=== PATIENT | female | born 1945 | race American Indian/Alaskan Native ===

== ENCOUNTER 2019-02-10 03:51 | Emergency (ER) | payer MEDICARE ==
[2019-02-10 04:39] VITALS: BP 142/72
[2019-02-10 04:56] LABS: Basophils # (Auto) 0.1 K/mm3 (0.0-0.1); Basophils % (Auto) 1.4 % (0.0-1.8); Eosinophils # (Auto) 0.2 K/mm3 (0.0-0.4); Eosinophils % (Auto) 2.7 % (0.0-4.3); Hematocrit 41.7 % (30.3-42.9); Lymphocytes # (Auto) 1.4 K/mm3 (1.2-5.4); Mean Corpuscular HGB Conc 34 % (30-34); Mean Corpuscular Volume 90 fl (79-97); Monocytes # (Auto) 0.7 K/mm3 (0.0-0.8); Monocytes % (Auto) 9.7 % (0.0-7.3); Platelet Count 359 K/mm3 (140-440); Red Blood Count 4.65 M/mm3 (3.65-5.03); Red Cell Distribution Width 15.2 % (13.2-15.2)
[2019-02-10 04:59] LABS: Bilirubin,Urine NEG (Negative); Blood,Urine NEG (Negative); Color,Urine Straw (Yellow); Protein,Urine <15 mg/dL mg/dL (Negative); Urobilinogen,Urine < 2.0 mg/dL (<2.0)
[2019-02-10 05:08] LABS: Amphetamine Screen,Urine PRESUMPTIVE NEGATIVE; Cannabinoid Screen,Urine PRESUMPTIVE NEGATIVE; Cocaine Screen,Urine PRESUMPTIVE NEGATIVE; Methadone Screen,Urine PRESUMPTIVE NEGATIVE; Opiate Screen,Urine PRESUMPTIVE NEGATIVE
[2019-02-10 05:18] LABS: BUN/Creatinine Ratio 21; Blood Urea Nitrogen 15 mg/dL (7-17); Calcium 9.5 mg/dL (8.4-10.2); Hemolysis Index 17
[2019-02-10 05:32] LABS: Benzodiazepines Screen,Urine PRESUMPTIVE POSITIVE
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
== END 2019-02-10 09:11 ==
LOC: ED 03:51
DX: F31.9 Bipolar disorder, unspecified (principal); Z79.899 Other long term (current) drug therapy
CPT/HCPCS: 36415; 80048; 80307; 80320; 81001; 85025; G0480

== ENCOUNTER 2019-02-10 09:34 | Inpatient (IN) | payer MEDICARE ==
[2019-02-10] MEDS ORDERED: HALOPERIDOL LACTATE 5 MG/1 ML INJ IM PRN (09:57)
[2019-02-10] MEDS ORDERED: LORazepam 2 MG/ML VIAL IM PRN (09:57)
[2019-02-10 12:30] LABS: Basophils # (Auto) 0.1 K/mm3 (0.0-0.1); Basophils % (Auto) 0.9 % (0.0-1.8); Eosinophils # (Auto) 0.1 K/mm3 (0.0-0.4); Eosinophils % (Auto) 2.3 % (0.0-4.3); Hemoglobin 13.5 gm/dl (10.1-14.3); Lymphocytes # (Auto) 0.7 K/mm3 (1.2-5.4); Lymphocytes % (Auto) 11.6 % (13.4-35.0); Mean Corpuscular HGB Conc 34 % (30-34); Mean Corpuscular Volume 90 fl (79-97); Monocytes # (Auto) 0.6 K/mm3 (0.0-0.8); Monocytes % (Auto) 11.1 % (0.0-7.3); Platelet Count 333 K/mm3 (140-440); Red Blood Count 4.44 M/mm3 (3.65-5.03); Red Cell Distribution Width 15.6 % (13.2-15.2)
[2019-02-10 12:49] LABS: Alanine Aminotransferase 7 units/L (7-56); Albumin 4.5 g/dL (3.9-5); BUN/Creatinine Ratio 21; Blood Urea Nitrogen 15 mg/dL (7-17); Calcium 9.7 mg/dL (8.4-10.2); Chol/HDL Ratio 2.74 %; HDL Cholesterol 89 mg/dL (40-59); Hemolysis Index 26; LDL Cholesterol,Direct 158 mg/dL (50-130)
[2019-02-10] MEDS ORDERED: MECLIZINE 25 MG PO PRN (14:31)
[2019-02-10] MEDS ORDERED: MECLIZINE 25 MG TAB PO PRN (14:44)
[2019-02-10] MEDS: SERTRALINE 50 MG TAB PO SCH (15:36)
[2019-02-10] MEDS: clonazePAM 0.5 MG TAB PO SCH ×2 (15:36→21:57)
[2019-02-10] MEDS: NICOTINE 21 MG/24 HR PATCH TD SCH (18:42)
[2019-02-10] MEDS: traZODone 100 MG TAB PO SCH (21:57)
[2019-02-11] MEDS: LEVOTHYROXINE 50 MCG TAB PO SCH (07:39)
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
[2019-02-11] MEDS: clonazePAM 0.5 MG TAB PO SCH ×2 (09:29→21:09)
[2019-02-11] MEDS: SERTRALINE 50 MG TAB PO SCH (09:29)
[2019-02-11] MEDS: PANTOPRAZOLE 20 MG TAB PO SCH (09:29)
[2019-02-11] MEDS: NICOTINE 21 MG/24 HR PATCH TD SCH (09:29)
[2019-02-11] MEDS ORDERED: NON-FORMULARY EACH (Omeprazole [Omeprazole] 20 MG) PO SCH (10:00)
--- NOTE | 2019-02-11 12:58 | Consultation ---
History of Present Illness - Reason for Consult Consult date: 02/11/19 medical management Requesting physician: MONTANA GARCIA - History of Present Illness 73-year-old female patient with significant history of bipolar disorder and major depressive disorder hypothyroidism gastroesophageal reflux disease and ongoing tobacco use was admitted to geriatric psych unit for psych management Hospitalist services for consultation for medical consult and medical management Patient gives history of GERD and hypothyroidism, on Protonix and Synthroid at Patient also has history of ongoing tobacco use Patient does not know why she is in the hospital, reports that her and daughter got a court order then brought her here, Patient denies chest pain shortness of breath no nausea vomiting or abdominal pain Past History Past Medical History: GERD, hypothyroidism Past Surgical History: No surgical history Social history: , lives with family (has some college ed, no legal problems, has a gun), smoking, other (occasional drug use). denies: alcohol abuse Family history: no significant family history Medications and Allergies Allergies Allergy/AdvReac Type Severity Reaction Status Date / Time No Known Allergies Allergy Unverified 02/10/19 04:23 Home Medications Medication Instructions Recorded Confirmed Last Taken Type Levothyroxine [Synthroid] 50 mcg PO QDAY 02/10/19 02/10/19 02/09/19 08:00 History Meclizine 25 mg PO PRN PRN 02/10/19 02/10/19 Unknown History Omeprazole 20 mg PO QDAY 02/10/19 02/10/19 02/09/19 10:00 History Sertraline [Zoloft] 50 mg PO QDAY 02/10/19 02/10/19 02/09/19 10:00 History clonazePAM [KlonoPIN] 0.5 mg PO BID 02/10/19 02/10/19 02/09/19 17:00 History traZODone [Desyrel] 100 mg PO QHS 02/10/19 02/10/19 02/09/19 20:00 History Active Meds: Active Medications Clonazepam (Klonopin) 0.5 mg PO BID [facility] Last Admin: 02/11/19 09:29 Dose: 0.5 mg Documented by: Haloperidol Lactate (Haldol) 5 mg IM Q6H PRN PRN Reason: Agitation Levothyroxine Sodium (Synthroid) 50 mcg PO 0600 [facility] Last Admin: 02/11/19 07:39 Dose: 50 mcg Documented by: Lorazepam (Ativan) 1 mg IM Q6H PRN PRN Reason: Agitation Meclizine HCl (Antivert) 25 mg PO Q8H PRN PRN Reason: Vertigo Nicotine (Habitrol) 21 mg TD QDAY [facility] Last Admin: 02/11/19 09:29 Dose: 21 mg Documented by: Pantoprazole Sodium (Protonix) 20 mg PO QDAY [facility] Last Admin: 02/11/19 09:29 Dose: 20 mg Documented by: Sertraline HCl (Zoloft) 50 mg PO QDAY [facility] Last Admin: 02/11/19 09:29 Dose: 50 mg Documented by: Trazodone HCl (Desyrel) 100 mg PO QHS [facility] Last Admin: 02/10/19 21:57 Dose: 100 mg Documented by: Review of Systems Constitutional: weakness, no weight loss, no weight gain Ears, nose, mouth and throat: no nasal congestion, no nasal discharge Cardiovascular: no chest pain, no palpitations Respiratory: no cough, no shortness of breath Gastrointestinal: no abdominal pain, no nausea, no vomiting Genitourinary Female: no pelvic pain, no dysuria Musculoskeletal: no myalgias, no arthritis Integumentary: no rash, no lesions Neurological: no weakness, no seizures, no syncope Psychiatric: depression, no anxiety Endocrine: no cold intolerance, no heat intolerance Hematologic/Lymphatic: no easy bruising, no easy bleeding Allergic/Immunologic: no urticaria, no allergic rhinitis Exam - Constitutional Vitals: Temp Pulse Resp BP Pulse Ox 98.1 F 91 H 16 130/52 95 02/11/19 09:25 02/11/19 09:25 02/11/19 09:25 02/11/19 09:25 02/11/19 09:25 General appearance: Present: no acute distress, well-nourished, other (mild regurgitation) - EENT Eyes: Present: PERRL, EOM intact - Neck Neck: Present: supple, normal ROM - Respiratory Respiratory effort: normal Respiratory: bilateral: diminished, negative: rales, rhonchi, wheezing - Cardiovascular Rhythm: regular Heart Sounds: Present: S1 & S2 - Extremities Extremities: no ischemia, No edema - Abdominal General gastrointestinal: Present: soft, non-tender, non-distended, normal bowel sounds - Integumentary Integumentary: Present: clear, warm - Musculoskeletal Musculoskeletal: strength equal bilaterally - Psychiatric Psychiatric: appropriate mood/affect, other (sometimes anxious) - Neurologic Neurologic: moves all extremities Results - Labs CBC & Chem 7: 02/10/19 12:10 02/10/19 12:10 Assessment and Plan --Bipolar disorder; management per psych --Gastroesophageal reflux disease; Protonix --Hypothyroidism; resume her Synthroid --Ongoing tobacco use; smoking cessation counseling Nicotine patch as needed --Dyslipidemia; Low-cholesterol diet Repeat lipid panel in 3-4 months at PMDs office --DVT prophylaxis; SCDs while resting Will monitor closely and adjust the management as needed Thank you for this consultation we will follow the patient along with you as needed
[2019-02-11 18:32] LABS: Bacteria,Urine 1+ /HPF (Negative); Bilirubin,Urine NEG (Negative); Blood,Urine NEG (Negative); Color,Urine Yellow (Yellow); Protein,Urine <15 mg/dL mg/dL (Negative); Urobilinogen,Urine < 2.0 mg/dL (<2.0)
[2019-02-11] MEDS: traZODone 100 MG TAB PO SCH (21:09)
[2019-02-12] MEDS: PANTOPRAZOLE 20 MG TAB PO SCH (10:03)
[2019-02-12] MEDS: NICOTINE 21 MG/24 HR PATCH TD SCH (10:03)
[2019-02-12] MEDS: clonazePAM 0.5 MG TAB PO SCH ×2 (10:03→21:10)
[2019-02-12] MEDS: SERTRALINE 50 MG TAB PO SCH (10:04)
--- NOTE | 2019-02-12 11:43 | Progress Note ---
Subjective Date of service: 02/12/19 Principal diagnosis: Bipolardisorder, unspecified Subjective Comment: Patient report that mood is depressed but denies being suicidal. She is compliant with medications and denies side effect. She denies SI/HI/AVH. She is apparently homeless at this time. Nursing Report: Patient is alert and oriented x's 4, calm, and cooperative. currently medication compliant. denies si/hi/avh.patient ambulates independently. she has been interactive with peers and staff. independent with adl's. patient had a shower this morning. continent. voices needs. will continue to monitor for safety. MSE: Orientation: time, place, person Affect: normal Mood: calm Thought Process: Intact Perceptions: none Speech: normal rate and pattern Concentration: focused Motor activity: normal Level of consciousness: alert Memory: Intact Interaction: cooperative Mini mental status exam(if necessary): 24-30 Objective - Criteria for Continued Treatment Criteria for Continued Treatment: Improving Level of Functioning, Stablizing Level of Functioning, Improving Emotional/Socia - Mental Status Mental Status: Alert - Objective Observation Participation Level: Full Assessment and Plan - Patient Problems (1) Bipolar disorder, unspecified Current Visit: Yes Status: Acute Plan to address problem: Patient will be admitted for inpatient psychiatric evaluation, medication adjustment and close monitoring The patient's behavior, mood, sleep and appetite will be closely monitored. Patient will be enrolled in individual and group therapeutic sessions and encouraged to attend. Patient will be provided with a safe and structured environment. Patient's physical health needs will be addressed by the Hospitalist. Social Assessment will be completed and the Nursery Nurse will work with patient and family to ensure a suitable and safe disposition Medication adjustment will be made as clinically indicated The patient agreed on the treatment plan, understood the risk, benefit, alternative treatment, potential consequence of no treatment, and gave informed consent. Medications and Allergies Allergies Allergy/AdvReac Type Severity Reaction Status Date / Time No Known Allergies Allergy Unverified 02/10/19 04:23 Home Medications Medication Instructions Recorded Confirmed Last Taken Type Levothyroxine [Synthroid] 50 mcg PO QDAY 02/10/19 02/10/19 02/09/19 08:00 History Meclizine 25 mg PO PRN PRN 02/10/19 02/10/19 Unknown History Omeprazole 20 mg PO QDAY 02/10/19 02/10/19 02/09/19 10:00 History Sertraline [Zoloft] 50 mg PO QDAY 02/10/19 02/10/19 02/09/19 10:00 History clonazePAM [KlonoPIN] 0.5 mg PO BID 02/10/19 02/10/19 02/09/19 17:00 History traZODone [Desyrel] 100 mg PO QHS 02/10/19 02/10/19 02/09/19 20:00 History Active Meds: Active Medications Clonazepam (Klonopin) 0.5 mg PO BID [facility] Last Admin: 02/12/19 10:03 Dose: 0.5 mg Documented by: Haloperidol Lactate (Haldol) 5 mg IM Q6H PRN PRN Reason: Agitation Levothyroxine Sodium (Synthroid) 50 mcg PO 0600 [facility] Last Admin: 02/11/19 07:39 Dose: 50 mcg Documented by: Lorazepam (Ativan) 1 mg IM Q6H PRN PRN Reason: Agitation Meclizine HCl (Antivert) 25 mg PO Q8H PRN PRN Reason: Vertigo Nicotine (Habitrol) 21 mg TD QDAY [facility] Last Admin: 02/12/19 10:03 Dose: 21 mg Documented by: Pantoprazole Sodium (Protonix) 20 mg PO QDAY [facility] Last Admin: 02/12/19 10:03 Dose: 20 mg Documented by: Sertraline HCl (Zoloft) 50 mg PO QDAY [facility] Last Admin: 02/12/19 10:04 Dose: 50 mg Documented by: Trazodone HCl (Desyrel) 100 mg PO QHS [facility] Last Admin: 02/11/19 21:09 Dose: 100 mg Documented by: Results - Results Labs/Vitals: Laboratory Last Values WBC 5.8 K/mm3 (4.5-11.0) 02/10/19 12:10 RBC 4.44 M/mm3 (3.65-5.03) 02/10/19 12:10 Hgb 13.5 gm/dl (10.1-14.3) 02/10/19 12:10 Hct 40.0 % (30.3-42.9) 02/10/19 12:10 MCV 90 fl (79-97) 02/10/19 12:10 MCH 30 pg (28-32) 02/10/19 12:10 MCHC 34 % (30-34) 02/10/19 12:10 RDW 15.6 % (13.2-15.2) H 02/10/19 12:10 Plt Count 333 K/mm3 (140-440) 02/10/19 12:10 Lymph % (Auto) 11.6 % (13.4-35.0) L 02/10/19 12:10 [place] % (Auto) 11.1 % (0.0-7.3) H 02/10/19 12:10 Eos % (Auto) 2.3 % (0.0-4.3) 02/10/19 12:10 Baso % (Auto) 0.9 % (0.0-1.8) 02/10/19 12:10 Lymph # 0.7 K/mm3 (1.2-5.4) L 02/10/19 12:10 [place] # 0.6 K/mm3 (0.0-0.8) 02/10/19 12:10 Eos # 0.1 K/mm3 (0.0-0.4) 02/10/19 12:10 Baso # 0.1 K/mm3 (0.0-0.1) 02/10/19 12:10 Seg Neutrophils % 74.1 % (40.0-70.0) H 02/10/19 12:10 Seg Neutrophils # 4.3 K/mm3 (1.8-7.7) 02/10/19 12:10 Sodium 139 mmol/L (137-145) 02/10/19 12:10 Potassium 5.1 mmol/L (3.6-5.0) H D 02/10/19 12:10 Chloride 99.1 mmol/L (98-107) 02/10/19 12:10 Carbon Dioxide 28 mmol/L (22-30) 02/10/19 12:10 Anion Gap 17 mmol/L 02/10/19 12:10 BUN 15 mg/dL (7-17) 02/10/19 12:10 Creatinine 0.7 mg/dL (0.7-1.2) 02/10/19 12:10 Estimated GFR > 60 ml/min 02/10/19 12:10 BUN/Creatinine Ratio 21 % 02/10/19 12:10 Glucose 100 mg/dL (65-100) 02/10/19 12:10 POC Glucose 91 (70-105) 02/10/19 12:34 Hemoglobin A1c 6.5 % (4-6) H 02/10/19 12:10 Calcium 9.7 mg/dL (8.4-10.2) 02/10/19 12:10 Total Bilirubin 0.20 mg/dL (0.1-1.2) 02/10/19 12:10 AST 16 units/L (5-40) 02/10/19 12:10 ALT 7 units/L (7-56) 02/10/19 12:10 Alkaline Phosphatase 68 units/L (35-129) 02/10/19 12:10 Total Protein 7.0 g/dL (6.3-8.2) 02/10/19 12:10 Albumin 4.5 g/dL (3.9-5) 02/10/19 12:10 Albumin/Globulin Ratio 1.8 % 02/10/19 12:10 Triglycerides 75 mg/dL (2-149) 02/10/19 12:10 Cholesterol 244 mg/dL (50-199) H 02/10/19 12:10 LDL Cholesterol Direct 158 mg/dL (50-130) H 02/10/19 12:10 HDL Cholesterol 89 mg/dL (40-59) H 02/10/19 12:10 Cholesterol/HDL Ratio 2.74 % 02/10/19 12:10 Urine Color Yellow (Yellow) 02/10/19 Unknown Urine Turbidity Clear (Clear) 02/10/19 Unknown Urine pH 6.0 (5.0-7.0) 02/10/19 Unknown Ur Specific [place] 1.016 (1.003-1.030) 02/10/19 Unknown Urine Protein <15 mg/dl mg/dL (Negative) 02/10/19 Unknown Urine Glucose (UA) Neg mg/dL (Negative) 02/10/19 Unknown Urine Ketones Neg mg/dL (Negative) 02/10/19 Unknown Urine Blood Neg (Negative) 02/10/19 Unknown Urine Nitrite Neg (Negative) 02/10/19 Unknown Urine Bilirubin Neg (Negative) 02/10/19 Unknown Urine Urobilinogen < 2.0 mg/dL (<2.0) 02/10/19 Unknown Ur Leukocyte Esterase Mod (Negative) 02/10/19 Unknown Urine WBC (Auto) 17.0 /HPF (0.0-6.0) H 02/10/19 Unknown Urine RBC (Auto) 2.0 /HPF (0.0-6.0) 02/10/19 Unknown U Epithel Cells (Auto) < 1.0 /HPF (0-13.0) 02/10/19 Unknown Urine Bacteria (Auto) 1+ /HPF (Negative) 02/10/19 Unknown Last Vital Signs Temp 97.9 F 02/12/19 09:04 Pulse 86 02/12/19 09:04 Resp 16 02/12/19 09:04 BP 104/61 02/12/19 09:04 Pulse Ox 95 02/12/19 09:04
[2019-02-12] MEDS: traZODone 100 MG TAB PO SCH (21:09)
[2019-02-13] MEDS: LEVOTHYROXINE 50 MCG TAB PO SCH (06:26)
--- NOTE | 2019-02-13 08:08 | Progress Note ---
Subjective Date of service: 02/13/19 Principal diagnosis: Bipolar disorder, unspecified Subjective Comment: Patient report that mood is more depressed this morning but denies being suicidal. She is compliant with medications and denies side effect. She denies SI/HI/AVH. She is apparently homeless at this time. Nursing Report: Patient is alert and oriented x's 4, calm, and cooperative. currently medication compliant. denies si/hi/avh.patient ambulates independently. she has been interactive with peers and staff. independent with adl's. patient had a shower this morning. continent. voices needs. will continue to monitor for safety. MSE: Orientation: time, place, person Affect: normal Mood: calm Thought Process: Intact Perceptions: none Speech: normal rate and pattern Concentration: focused Motor activity: normal Level of consciousness: alert Memory: Intact Interaction: cooperative Mini mental status exam(if necessary): 24-30 Objective - Criteria for Continued Treatment Criteria for Continued Treatment: Improving Level of Functioning, Stablizing Level of Functioning, Improving Emotional/Socia - Mental Status Mental Status: Alert - Objective Observation Participation Level: Full Assessment and Plan - Patient Problems (1) Bipolar disorder, unspecified Current Visit: Yes Status: Acute Plan to address problem: Patient will be admitted for inpatient psychiatric evaluation, medication adjustment and close monitoring The patient's behavior, mood, sleep and appetite will be closely monitored. Patient will be enrolled in individual and group therapeutic sessions and encouraged to attend. Patient will be provided with a safe and structured environment. Patient's physical health needs will be addressed by the Hospitalist. Social Assessment will be completed and the Cell Manager will work with patient and family to ensure a suitable and safe disposition Medication adjustment will be made as clinically indicated The patient agreed on the treatment plan, understood the risk, benefit, alternative treatment, potential consequence of no treatment, and gave informed consent. Medications and Allergies Allergies Allergy/AdvReac Type Severity Reaction Status Date / Time No Known Allergies Allergy Unverified 02/10/19 04:23 Home Medications Medication Instructions Recorded Confirmed Last Taken Type Levothyroxine [Synthroid] 50 mcg PO QDAY 02/10/19 02/10/19 02/09/19 08:00 History Meclizine 25 mg PO PRN PRN 02/10/19 02/10/19 Unknown History Omeprazole 20 mg PO QDAY 02/10/19 02/10/19 02/09/19 10:00 History Sertraline [Zoloft] 50 mg PO QDAY 02/10/19 02/10/19 02/09/19 10:00 History clonazePAM [KlonoPIN] 0.5 mg PO BID 02/10/19 02/10/19 02/09/19 17:00 History traZODone [Desyrel] 100 mg PO QHS 02/10/19 02/10/19 02/09/19 20:00 History Active Meds: Active Medications Clonazepam (Klonopin) 0.5 mg PO BID [facility] Last Admin: 02/12/19 21:10 Dose: 0.5 mg Documented by: Haloperidol Lactate (Haldol) 5 mg IM Q6H PRN PRN Reason: Agitation Levothyroxine Sodium (Synthroid) 50 mcg PO 0600 [facility] Last Admin: 02/13/19 06:26 Dose: 50 mcg Documented by: Lorazepam (Ativan) 1 mg IM Q6H PRN PRN Reason: Agitation Meclizine HCl (Antivert) 25 mg PO Q8H PRN PRN Reason: Vertigo Nicotine (Habitrol) 21 mg TD QDAY [facility] Last Admin: 02/12/19 10:03 Dose: 21 mg Documented by: Pantoprazole Sodium (Protonix) 20 mg PO QDAY [facility] Last Admin: 02/12/19 10:03 Dose: 20 mg Documented by: Sertraline HCl (Zoloft) 50 mg PO QDAY [facility] Last Admin: 02/12/19 10:04 Dose: 50 mg Documented by: Trazodone HCl (Desyrel) 100 mg PO QHS [facility] Last Admin: 02/12/19 21:09 Dose: 100 mg Documented by: Results - Results Labs/Vitals: Laboratory Last Values WBC 5.8 K/mm3 (4.5-11.0) 02/10/19 12:10 RBC 4.44 M/mm3 (3.65-5.03) 02/10/19 12:10 Hgb 13.5 gm/dl (10.1-14.3) 02/10/19 12:10 Hct 40.0 % (30.3-42.9) 02/10/19 12:10 MCV 90 fl (79-97) 02/10/19 12:10 MCH 30 pg (28-32) 02/10/19 12:10 MCHC 34 % (30-34) 02/10/19 12:10 RDW 15.6 % (13.2-15.2) H 02/10/19 12:10 Plt Count 333 K/mm3 (140-440) 02/10/19 12:10 Lymph % (Auto) 11.6 % (13.4-35.0) L 02/10/19 12:10 [place] % (Auto) 11.1 % (0.0-7.3) H 02/10/19 12:10 Eos % (Auto) 2.3 % (0.0-4.3) 02/10/19 12:10 Baso % (Auto) 0.9 % (0.0-1.8) 02/10/19 12:10 Lymph # 0.7 K/mm3 (1.2-5.4) L 02/10/19 12:10 [place] # 0.6 K/mm3 (0.0-0.8) 02/10/19 12:10 Eos # 0.1 K/mm3 (0.0-0.4) 02/10/19 12:10 Baso # 0.1 K/mm3 (0.0-0.1) 02/10/19 12:10 Seg Neutrophils % 74.1 % (40.0-70.0) H 02/10/19 12:10 Seg Neutrophils # 4.3 K/mm3 (1.8-7.7) 02/10/19 12:10 Sodium 139 mmol/L (137-145) 02/10/19 12:10 Potassium 5.1 mmol/L (3.6-5.0) H D 02/10/19 12:10 Chloride 99.1 mmol/L (98-107) 02/10/19 12:10 Carbon Dioxide 28 mmol/L (22-30) 02/10/19 12:10 Anion Gap 17 mmol/L 02/10/19 12:10 BUN 15 mg/dL (7-17) 02/10/19 12:10 Creatinine 0.7 mg/dL (0.7-1.2) 02/10/19 12:10 Estimated GFR > 60 ml/min 02/10/19 12:10 BUN/Creatinine Ratio 21 % 02/10/19 12:10 Glucose 100 mg/dL (65-100) 02/10/19 12:10 POC Glucose 91 (70-105) 02/10/19 12:34 Hemoglobin A1c 6.5 % (4-6) H 02/10/19 12:10 Calcium 9.7 mg/dL (8.4-10.2) 02/10/19 12:10 Total Bilirubin 0.20 mg/dL (0.1-1.2) 02/10/19 12:10 AST 16 units/L (5-40) 02/10/19 12:10 ALT 7 units/L (7-56) 02/10/19 12:10 Alkaline Phosphatase 68 units/L (35-129) 02/10/19 12:10 Total Protein 7.0 g/dL (6.3-8.2) 02/10/19 12:10 Albumin 4.5 g/dL (3.9-5) 02/10/19 12:10 Albumin/Globulin Ratio 1.8 % 02/10/19 12:10 Triglycerides 75 mg/dL (2-149) 02/10/19 12:10 Cholesterol 244 mg/dL (50-199) H 02/10/19 12:10 LDL Cholesterol Direct 158 mg/dL (50-130) H 02/10/19 12:10 HDL Cholesterol 89 mg/dL (40-59) H 02/10/19 12:10 Cholesterol/HDL Ratio 2.74 % 02/10/19 12:10 Urine Color Yellow (Yellow) 02/10/19 Unknown Urine Turbidity Clear (Clear) 02/10/19 Unknown Urine pH 6.0 (5.0-7.0) 02/10/19 Unknown Ur Specific [place] 1.016 (1.003-1.030) 02/10/19 Unknown Urine Protein <15 mg/dl mg/dL (Negative) 02/10/19 Unknown Urine Glucose (UA) Neg mg/dL (Negative) 02/10/19 Unknown Urine Ketones Neg mg/dL (Negative) 02/10/19 Unknown Urine Blood Neg (Negative) 02/10/19 Unknown Urine Nitrite Neg (Negative) 02/10/19 Unknown Urine Bilirubin Neg (Negative) 02/10/19 Unknown Urine Urobilinogen < 2.0 mg/dL (<2.0) 02/10/19 Unknown Ur Leukocyte Esterase Mod (Negative) 02/10/19 Unknown Urine WBC (Auto) 17.0 /HPF (0.0-6.0) H 02/10/19 Unknown Urine RBC (Auto) 2.0 /HPF (0.0-6.0) 02/10/19 Unknown U Epithel Cells (Auto) < 1.0 /HPF (0-13.0) 02/10/19 Unknown Urine Bacteria (Auto) 1+ /HPF (Negative) 02/10/19 Unknown Last Vital Signs Temp 98.4 F 02/12/19 20:22 Pulse 83 02/12/19 20:22 Resp 18 02/12/19 20:22 BP 142/62 02/12/19 20:22 Pulse Ox 96 02/12/19 20:22
[2019-02-13] MEDS: clonazePAM 0.5 MG TAB PO SCH ×2 (10:05→21:09)
[2019-02-13] MEDS: NICOTINE 21 MG/24 HR PATCH TD SCH (10:05)
[2019-02-13] MEDS: PANTOPRAZOLE 20 MG TAB PO SCH (10:05)
[2019-02-13] MEDS: SERTRALINE 50 MG TAB PO SCH (10:05)
[2019-02-13] MEDS ORDERED: LOPERAMIDE 2 MG CAP PO PRN (13:13)
[2019-02-13] MEDS: traZODone 100 MG TAB PO SCH (21:09)
[2019-02-14] MEDS: LEVOTHYROXINE 50 MCG TAB PO SCH ×2 (07:12→07:15)
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
[2019-02-14] MEDS: clonazePAM 0.5 MG TAB PO SCH ×2 (09:52→21:07)
[2019-02-14] MEDS: NICOTINE 21 MG/24 HR PATCH TD SCH (09:52)
[2019-02-14] MEDS: SERTRALINE 50 MG TAB PO SCH (09:52)
[2019-02-14] MEDS: PANTOPRAZOLE 20 MG TAB PO SCH (09:52)
--- NOTE | 2019-02-14 10:28 | Progress Note ---
Subjective Date of service: 02/14/19 Principal diagnosis: Bipolar disorder, unspecified Subjective Comment: Patient report that mood is more depressed this morning but denies being suicidal. She is compliant with medications and denies side effect. She denies SI/HI/AVH. She is apparently homeless at this time. Nursing Report: Patient is alert and oriented x's 4, calm, and cooperative. Slept well throughout the night and Currently med compliant. MSE: Orientation: time, place, person Affect: normal Mood: calm Thought Process: Intact Perceptions: none Speech: normal rate and pattern Concentration: focused Motor activity: normal Level of consciousness: alert Memory: Intact Interaction: cooperative Mini mental status exam(if necessary): - Assessment and Plan - Patient Problems (1) Bipolar disorder, unspecified Current Visit: Yes Status: Acute Medications and Allergies Allergies Allergy/AdvReac Type Severity Reaction Status Date / Time No Known Allergies Allergy Unverified 02/10/19 04:23 Home Medications Medication Instructions Recorded Confirmed Last Taken Type Levothyroxine [Synthroid] 50 mcg PO QDAY 02/10/19 02/10/19 02/09/19 08:00 History Meclizine 25 mg PO PRN PRN 02/10/19 02/10/19 Unknown History Omeprazole 20 mg PO QDAY 02/10/19 02/10/19 02/09/19 10:00 History Sertraline [Zoloft] 50 mg PO QDAY 02/10/19 02/10/19 02/09/19 10:00 History clonazePAM [KlonoPIN] 0.5 mg PO BID 02/10/19 02/10/19 02/09/19 17:00 History traZODone [Desyrel] 100 mg PO QHS 02/10/19 02/10/19 02/09/19 20:00 History Active Meds: Active Medications Clonazepam (Klonopin) 0.5 mg PO BID [facility] Last Admin: 02/14/19 09:52 Dose: 0.5 mg Documented by: Haloperidol Lactate (Haldol) 5 mg IM Q6H PRN PRN Reason: Agitation Levothyroxine Sodium (Synthroid) 50 mcg PO 0600 [facility] Last Admin: 02/14/19 07:15 Dose: 50 mcg Documented by: Loperamide HCl (Imodium) 2 mg PO Q6H PRN PRN Reason: Diarrhea Lorazepam (Ativan) 1 mg IM Q6H PRN PRN Reason: Agitation Meclizine HCl (Antivert) 25 mg PO Q8H PRN PRN Reason: Vertigo Nicotine (Habitrol) 21 mg TD QDAY [facility] Last Admin: 02/14/19 09:52 Dose: 21 mg Documented by: Pantoprazole Sodium (Protonix) 20 mg PO QDAY [facility] Last Admin: 02/14/19 09:52 Dose: 20 mg Documented by: Sertraline HCl (Zoloft) 50 mg PO QDAY [facility] Last Admin: 02/14/19 09:52 Dose: 50 mg Documented by: Trazodone HCl (Desyrel) 100 mg PO QHS [facility] Last Admin: 02/13/19 21:09 Dose: 100 mg Documented by: Results - Results Labs/Vitals: Laboratory Last Values WBC 5.8 K/mm3 (4.5-11.0) 02/10/19 12:10 RBC 4.44 M/mm3 (3.65-5.03) 02/10/19 12:10 Hgb 13.5 gm/dl (10.1-14.3) 02/10/19 12:10 Hct 40.0 % (30.3-42.9) 02/10/19 12:10 MCV 90 fl (79-97) 02/10/19 12:10 MCH 30 pg (28-32) 02/10/19 12:10 MCHC 34 % (30-34) 02/10/19 12:10 RDW 15.6 % (13.2-15.2) H 02/10/19 12:10 Plt Count 333 K/mm3 (140-440) 02/10/19 12:10 Lymph % (Auto) 11.6 % (13.4-35.0) L 02/10/19 12:10 [place] % (Auto) 11.1 % (0.0-7.3) H 02/10/19 12:10 Eos % (Auto) 2.3 % (0.0-4.3) 02/10/19 12:10 Baso % (Auto) 0.9 % (0.0-1.8) 02/10/19 12:10 Lymph # 0.7 K/mm3 (1.2-5.4) L 02/10/19 12:10 [place] # 0.6 K/mm3 (0.0-0.8) 02/10/19 12:10 Eos # 0.1 K/mm3 (0.0-0.4) 02/10/19 12:10 Baso # 0.1 K/mm3 (0.0-0.1) 02/10/19 12:10 Seg Neutrophils % 74.1 % (40.0-70.0) H 02/10/19 12:10 Seg Neutrophils # 4.3 K/mm3 (1.8-7.7) 02/10/19 12:10 Sodium 139 mmol/L (137-145) 02/10/19 12:10 Potassium 5.1 mmol/L (3.6-5.0) H D 02/10/19 12:10 Chloride 99.1 mmol/L (98-107) 02/10/19 12:10 Carbon Dioxide 28 mmol/L (22-30) 02/10/19 12:10 Anion Gap 17 mmol/L 02/10/19 12:10 BUN 15 mg/dL (7-17) 02/10/19 12:10 Creatinine 0.7 mg/dL (0.7-1.2) 02/10/19 12:10 Estimated GFR > 60 ml/min 02/10/19 12:10 BUN/Creatinine Ratio 21 % 02/10/19 12:10 Glucose 100 mg/dL (65-100) 02/10/19 12:10 POC Glucose 91 (70-105) 02/10/19 12:34 Hemoglobin A1c 6.5 % (4-6) H 02/10/19 12:10 Calcium 9.7 mg/dL (8.4-10.2) 02/10/19 12:10 Total Bilirubin 0.20 mg/dL (0.1-1.2) 02/10/19 12:10 AST 16 units/L (5-40) 02/10/19 12:10 ALT 7 units/L (7-56) 02/10/19 12:10 Alkaline Phosphatase 68 units/L (35-129) 02/10/19 12:10 Total Protein 7.0 g/dL (6.3-8.2) 02/10/19 12:10 Albumin 4.5 g/dL (3.9-5) 02/10/19 12:10 Albumin/Globulin Ratio 1.8 % 02/10/19 12:10 Triglycerides 75 mg/dL (2-149) 02/10/19 12:10 Cholesterol 244 mg/dL (50-199) H 02/10/19 12:10 LDL Cholesterol Direct 158 mg/dL (50-130) H 02/10/19 12:10 HDL Cholesterol 89 mg/dL (40-59) H 02/10/19 12:10 Cholesterol/HDL Ratio 2.74 % 02/10/19 12:10 Urine Color Yellow (Yellow) 02/10/19 Unknown Urine Turbidity Clear (Clear) 02/10/19 Unknown Urine pH 6.0 (5.0-7.0) 02/10/19 Unknown Ur Specific [place] 1.016 (1.003-1.030) 02/10/19 Unknown Urine Protein <15 mg/dl mg/dL (Negative) 02/10/19 Unknown Urine Glucose (UA) Neg mg/dL (Negative) 02/10/19 Unknown Urine Ketones Neg mg/dL (Negative) 02/10/19 Unknown Urine Blood Neg (Negative) 02/10/19 Unknown Urine Nitrite Neg (Negative) 02/10/19 Unknown Urine Bilirubin Neg (Negative) 02/10/19 Unknown Urine Urobilinogen < 2.0 mg/dL (<2.0) 02/10/19 Unknown Ur Leukocyte Esterase Mod (Negative) 02/10/19 Unknown Urine WBC (Auto) 17.0 /HPF (0.0-6.0) H 02/10/19 Unknown Urine RBC (Auto) 2.0 /HPF (0.0-6.0) 02/10/19 Unknown U Epithel Cells (Auto) < 1.0 /HPF (0-13.0) 02/10/19 Unknown Urine Bacteria (Auto) 1+ /HPF (Negative) 02/10/19 Unknown Last Vital Signs Temp 98.2 F 02/13/19 19:49 Pulse 85 02/13/19 19:49 Resp 20 02/13/19 19:49 BP 146/62 02/13/19 19:49 Pulse Ox 98 02/13/19 19:49
[2019-02-14] MEDS: traZODone 100 MG TAB PO SCH (21:07)
[2019-02-15] MEDS: LEVOTHYROXINE 50 MCG TAB PO SCH (05:09)
--- NOTE | 2019-02-15 07:16 | Progress Note ---
Subjective Date of service: 02/15/19 Principal diagnosis: Bipolar disorder, unspecified Subjective Comment: Pt presents as irritable and short fused. Pt states that she feels the same as yesterday but her anxiety is better and the Vistaril gave her some relief. Pt voiced that she wanted her meds because she felt anxious when asked why she was anxious pt stated "I am in here with these people, and I am homeless". Pt is still speaking with daughter regarding her d/c plan to live at a [facility] or assisted living. Nurses report: Pt is alert and oriented x3, calm and cooperative during the shift, pt was anxious and was given Ativan 1mg IM, medication compliant, good appetite, interacts well with peers, no behavioral issues, no complaints voiced, slept through the night. MSE: Orientation: time, place, person Affect: normal Mood: calm Thought Process: Intact Perceptions: none Speech: normal rate and pattern Concentration: focused Motor activity: normal Level of consciousness: alert Memory: Intact Interaction: cooperative Mini mental status exam(if necessary): 24-30 Objective - Criteria for Continued Treatment Criteria for Continued Treatment: Improving Level of Functioning, Stablizing Level of Functioning, Improving Emotional/Socia - Mental Status Mental Status: Oriented x 3 - Objective Observation Participation Level: Moderate Assessment and Plan - Patient Problems (1) Bipolar disorder, unspecified Current Visit: Yes Status: Acute Plan to address problem: Patient will be admitted for inpatient psychiatric evaluation, medication adjustment and close monitoring The patient's behavior, mood, sleep and appetite will be closely monitored. Patient will be enrolled in individual and group therapeutic sessions and encouraged to attend. Patient will be provided with a safe and structured environment. Patient's physical health needs will be addressed by the Hospitalist. Social Assessment will be completed and the Thermodynamics Professor will work with patient and family to ensure a suitable and safe disposition Medication adjustment will be made as clinically indicated The patient agreed on the treatment plan, understood the risk, benefit, alternative treatment, potential consequence of no treatment, and gave informed consent. Medications and Allergies Allergies Allergy/AdvReac Type Severity Reaction Status Date / Time No Known Allergies Allergy Unverified 02/10/19 04:23 Home Medications Medication Instructions Recorded Confirmed Last Taken Type Levothyroxine [Synthroid] 50 mcg PO QDAY 02/10/19 02/10/19 02/09/19 08:00 History Meclizine 25 mg PO PRN PRN 02/10/19 02/10/19 Unknown History Omeprazole 20 mg PO QDAY 02/10/19 02/10/19 02/09/19 10:00 History Sertraline [Zoloft] 50 mg PO QDAY 02/10/19 02/10/19 02/09/19 10:00 History clonazePAM [KlonoPIN] 0.5 mg PO BID 02/10/19 02/10/19 02/09/19 17:00 History traZODone [Desyrel] 100 mg PO QHS 02/10/19 02/10/19 02/09/19 20:00 History Active Meds: Active Medications Clonazepam (Klonopin) 0.5 mg PO BID [facility] Last Admin: 02/14/19 21:07 Dose: 0.5 mg Documented by: Haloperidol Lactate (Haldol) 5 mg IM Q6H PRN PRN Reason: Agitation Hydroxyzine Pamoate (Vistaril) 50 mg PO Q6H PRN PRN Reason: Anxiety Levothyroxine Sodium (Synthroid) 50 mcg PO 0600 [facility] Last Admin: 02/15/19 05:09 Dose: 50 mcg Documented by: Loperamide HCl (Imodium) 2 mg PO Q6H PRN PRN Reason: Diarrhea Lorazepam (Ativan) 1 mg IM Q6H PRN PRN Reason: Agitation Last Admin: 02/14/19 18:06 Dose: 1 mg Documented by: Meclizine HCl (Antivert) 25 mg PO Q8H PRN PRN Reason: Vertigo Nicotine (Habitrol) 21 mg TD QDAY [facility] Last Admin: 02/14/19 09:52 Dose: 21 mg Documented by: Pantoprazole Sodium (Protonix) 20 mg PO QDAY [facility] Last Admin: 02/14/19 09:52 Dose: 20 mg Documented by: Sertraline HCl (Zoloft) 50 mg PO QDAY [facility] Last Admin: 02/14/19 09:52 Dose: 50 mg Documented by: Trazodone HCl (Desyrel) 100 mg PO QHS [facility] Last Admin: 02/14/19 21:07 Dose: 100 mg Documented by: Results - Results Labs/Vitals: Laboratory Last Values WBC 5.8 K/mm3 (4.5-11.0) 02/10/19 12:10 RBC 4.44 M/mm3 (3.65-5.03) 02/10/19 12:10 Hgb 13.5 gm/dl (10.1-14.3) 02/10/19 12:10 Hct 40.0 % (30.3-42.9) 02/10/19 12:10 MCV 90 fl (79-97) 02/10/19 12:10 MCH 30 pg (28-32) 02/10/19 12:10 MCHC 34 % (30-34) 02/10/19 12:10 RDW 15.6 % (13.2-15.2) H 02/10/19 12:10 Plt Count 333 K/mm3 (140-440) 02/10/19 12:10 Lymph % (Auto) 11.6 % (13.4-35.0) L 02/10/19 12:10 [place] % (Auto) 11.1 % (0.0-7.3) H 02/10/19 12:10 Eos % (Auto) 2.3 % (0.0-4.3) 02/10/19 12:10 Baso % (Auto) 0.9 % (0.0-1.8) 02/10/19 12:10 Lymph # 0.7 K/mm3 (1.2-5.4) L 02/10/19 12:10 [place] # 0.6 K/mm3 (0.0-0.8) 02/10/19 12:10 Eos # 0.1 K/mm3 (0.0-0.4) 02/10/19 12:10 Baso # 0.1 K/mm3 (0.0-0.1) 02/10/19 12:10 Seg Neutrophils % 74.1 % (40.0-70.0) H 02/10/19 12:10 Seg Neutrophils # 4.3 K/mm3 (1.8-7.7) 02/10/19 12:10 Sodium 139 mmol/L (137-145) 02/10/19 12:10 Potassium 5.1 mmol/L (3.6-5.0) H D 02/10/19 12:10 Chloride 99.1 mmol/L (98-107) 02/10/19 12:10 Carbon Dioxide 28 mmol/L (22-30) 02/10/19 12:10 Anion Gap 17 mmol/L 02/10/19 12:10 BUN 15 mg/dL (7-17) 02/10/19 12:10 Creatinine 0.7 mg/dL (0.7-1.2) 02/10/19 12:10 Estimated GFR > 60 ml/min 02/10/19 12:10 BUN/Creatinine Ratio 21 % 02/10/19 12:10 Glucose 100 mg/dL (65-100) 02/10/19 12:10 POC Glucose 91 (70-105) 02/10/19 12:34 Hemoglobin A1c 6.5 % (4-6) H 02/10/19 12:10 Calcium 9.7 mg/dL (8.4-10.2) 02/10/19 12:10 Total Bilirubin 0.20 mg/dL (0.1-1.2) 02/10/19 12:10 AST 16 units/L (5-40) 02/10/19 12:10 ALT 7 units/L (7-56) 02/10/19 12:10 Alkaline Phosphatase 68 units/L (35-129) 02/10/19 12:10 Total Protein 7.0 g/dL (6.3-8.2) 02/10/19 12:10 Albumin 4.5 g/dL (3.9-5) 02/10/19 12:10 Albumin/Globulin Ratio 1.8 % 02/10/19 12:10 Triglycerides 75 mg/dL (2-149) 02/10/19 12:10 Cholesterol 244 mg/dL (50-199) H 02/10/19 12:10 LDL Cholesterol Direct 158 mg/dL (50-130) H 02/10/19 12:10 HDL Cholesterol 89 mg/dL (40-59) H 02/10/19 12:10 Cholesterol/HDL Ratio 2.74 % 02/10/19 12:10 Urine Color Yellow (Yellow) 02/10/19 Unknown Urine Turbidity Clear (Clear) 02/10/19 Unknown Urine pH 6.0 (5.0-7.0) 02/10/19 Unknown Ur Specific [place] 1.016 (1.003-1.030) 02/10/19 Unknown Urine Protein <15 mg/dl mg/dL (Negative) 02/10/19 Unknown Urine Glucose (UA) Neg mg/dL (Negative) 02/10/19 Unknown Urine Ketones Neg mg/dL (Negative) 02/10/19 Unknown Urine Blood Neg (Negative) 02/10/19 Unknown Urine Nitrite Neg (Negative) 02/10/19 Unknown Urine Bilirubin Neg (Negative) 02/10/19 Unknown Urine Urobilinogen < 2.0 mg/dL (<2.0) 02/10/19 Unknown Ur Leukocyte Esterase Mod (Negative) 02/10/19 Unknown Urine WBC (Auto) 17.0 /HPF (0.0-6.0) H 02/10/19 Unknown Urine RBC (Auto) 2.0 /HPF (0.0-6.0) 02/10/19 Unknown U Epithel Cells (Auto) < 1.0 /HPF (0-13.0) 02/10/19 Unknown Urine Bacteria (Auto) 1+ /HPF (Negative) 02/10/19 Unknown Last Vital Signs Temp 98.1 F 02/14/19 22:00 Pulse 89 02/14/19 22:00 Resp 18 02/14/19 22:00 BP 148/71 02/14/19 22:00 Pulse Ox 98 02/14/19 22:00
[2019-02-15] MEDS: NICOTINE 21 MG/24 HR PATCH TD SCH (09:19)
[2019-02-15] MEDS: PANTOPRAZOLE 20 MG TAB PO SCH (09:19)
[2019-02-15] MEDS: clonazePAM 0.5 MG TAB PO SCH ×2 (09:19→21:06)
[2019-02-15] MEDS: SERTRALINE 50 MG TAB PO SCH (09:19)
[2019-02-15] MEDS ORDERED: ZIPRASIDONE MESYLATE 20 MG VIAL IM PRN (11:29)
[2019-02-15] MEDS ORDERED: WATER FOR INJ Sterile (PF) 10 ML ONE (12:10)
[2019-02-15] MEDS: traZODone 100 MG TAB PO SCH (21:06)
[2019-02-15 23:23] VITALS: BP 136/69
--- NOTE | 2019-02-16 07:13 | Progress Note ---
Subjective Date of service: 02/16/19 Principal diagnosis: Bipolar disorder, unspecified Subjective Comment: Pt presents as irritable and short fused. Pt states that she feels the same as yesterday but her anxiety is better and the Vistaril gave her some relief. Pt voiced that she wanted her meds because she felt anxious when asked why she was anxious pt stated "I am in here with these people, and I am homeless". Pt is still speaking with daughter regarding her d/c plan to live at a [facility] or assisted living. Pt presented calm with good morning greetings, when pt was asked how she was doing this morning she stated "worse than when I came in". Pt was asked why and she responded, "I don't know, the medications, you told me I am suppose to get them but the nurses won't give them to me, they said we were going to do copping skills instead." It was explained to pt that the meds will now be scheduled three times a day, so that instead of her having to request for the medications, the nurses will see the orders so that they can have the meds ready for her at a set time. The patient agreed to this method in hopes that it will be better for managing her symptoms, stating that, "otherwise it creates anxiety for me." Pt states that her appetite is well, she slep ok lastnight and denies SI/HI/AVH. - Feb 22 Nurses report: Pt observed pacing on the unit and interacting with peers. She is compliant with routine meds, appetite good and no c/o pain. Pt denies HI/SI at this time, and becomes easily agitated when asked the reason for admission. Pt mood is labile and can be verbally abusive. Firm limits set with behavior expectations including not being verbally abusive. Pt continues to pace until she is ready for bed. MSE: Orientation: time, place, person Affect: normal Mood: calm Thought Process: Intact Perceptions: none Speech: normal rate and pattern Concentration: focused Motor activity: normal Level of consciousness: alert Memory: Intact Interaction: cooperative Mini mental status exam(if necessary): 24-30 Objective - Criteria for Continued Treatment Criteria for Continued Treatment: Improving Treatment / Medication Compliance, Stablizing Level of Functioning - Mental Status Mental Status: Oriented x 3 - Objective Observation Participation Level: Full Assessment and Plan - Patient Problems (1) Bipolar disorder, unspecified Current Visit: Yes Status: Acute Medications and Allergies Allergies Allergy/AdvReac Type Severity Reaction Status Date / Time No Known Allergies Allergy Unverified 02/10/19 04:23 Home Medications Medication Instructions Recorded Confirmed Last Taken Type Levothyroxine [Synthroid] 50 mcg PO QDAY 02/10/19 02/10/19 02/09/19 08:00 History Meclizine 25 mg PO PRN PRN 02/10/19 02/10/19 Unknown History Omeprazole 20 mg PO QDAY 02/10/19 02/10/19 02/09/19 10:00 History Sertraline [Zoloft] 50 mg PO QDAY 02/10/19 02/10/19 02/09/19 10:00 History clonazePAM [KlonoPIN] 0.5 mg PO BID 02/10/19 02/10/19 02/09/19 17:00 History traZODone [Desyrel] 100 mg PO QHS 02/10/19 02/10/19 02/09/19 20:00 History Active Meds: Active Medications Clonazepam (Klonopin) 0.5 mg PO BID [facility] Last Admin: 02/15/19 21:06 Dose: 0.5 mg Documented by: Hydroxyzine Pamoate (Vistaril) 50 mg PO Q6H PRN PRN Reason: Anxiety Last Admin: 02/15/19 18:11 Dose: 50 mg Documented by: Levothyroxine Sodium (Synthroid) 50 mcg PO 0600 [facility] Last Admin: 02/15/19 05:09 Dose: 50 mcg Documented by: Loperamide HCl (Imodium) 2 mg PO Q6H PRN PRN Reason: Diarrhea Meclizine HCl (Antivert) 25 mg PO Q8H PRN PRN Reason: Vertigo Nicotine (Habitrol) 21 mg TD QDAY [facility] Last Admin: 02/15/19 09:19 Dose: 21 mg Documented by: Pantoprazole Sodium (Protonix) 20 mg PO QDAY [facility] Last Admin: 02/15/19 09:19 Dose: 20 mg Documented by: Sertraline HCl (Zoloft) 50 mg PO QDAY [facility] Last Admin: 02/15/19 09:19 Dose: 50 mg Documented by: Trazodone HCl (Desyrel) 100 mg PO QHS [facility] Last Admin: 02/15/19 21:06 Dose: 100 mg Documented by: Ziprasidone (Geodon) 10 mg IM Q12H PRN PRN Reason: Agitation Last Admin: 02/15/19 12:23 Dose: 10 mg Documented by: Results - Results Labs/Vitals: Laboratory Last Values WBC 5.8 K/mm3 (4.5-11.0) 02/10/19 12:10 RBC 4.44 M/mm3 (3.65-5.03) 02/10/19 12:10 Hgb 13.5 gm/dl (10.1-14.3) 02/10/19 12:10 Hct 40.0 % (30.3-42.9) 02/10/19 12:10 MCV 90 fl (79-97) 02/10/19 12:10 MCH 30 pg (28-32) 02/10/19 12:10 MCHC 34 % (30-34) 02/10/19 12:10 RDW 15.6 % (13.2-15.2) H 02/10/19 12:10 Plt Count 333 K/mm3 (140-440) 02/10/19 12:10 Lymph % (Auto) 11.6 % (13.4-35.0) L 02/10/19 12:10 [place] % (Auto) 11.1 % (0.0-7.3) H 02/10/19 12:10 Eos % (Auto) 2.3 % (0.0-4.3) 02/10/19 12:10 Baso % (Auto) 0.9 % (0.0-1.8) 02/10/19 12:10 Lymph # 0.7 K/mm3 (1.2-5.4) L 02/10/19 12:10 [place] # 0.6 K/mm3 (0.0-0.8) 02/10/19 12:10 Eos # 0.1 K/mm3 (0.0-0.4) 02/10/19 12:10 Baso # 0.1 K/mm3 (0.0-0.1) 02/10/19 12:10 Seg Neutrophils % 74.1 % (40.0-70.0) H 02/10/19 12:10 Seg Neutrophils # 4.3 K/mm3 (1.8-7.7) 02/10/19 12:10 Sodium 139 mmol/L (137-145) 02/10/19 12:10 Potassium 5.1 mmol/L (3.6-5.0) H D 02/10/19 12:10 Chloride 99.1 mmol/L (98-107) 02/10/19 12:10 Carbon Dioxide 28 mmol/L (22-30) 02/10/19 12:10 Anion Gap 17 mmol/L 02/10/19 12:10 BUN 15 mg/dL (7-17) 02/10/19 12:10 Creatinine 0.7 mg/dL (0.7-1.2) 02/10/19 12:10 Estimated GFR > 60 ml/min 02/10/19 12:10 BUN/Creatinine Ratio 21 % 02/10/19 12:10 Glucose 100 mg/dL (65-100) 02/10/19 12:10 POC Glucose 91 (70-105) 02/10/19 12:34 Hemoglobin A1c 6.5 % (4-6) H 02/10/19 12:10 Calcium 9.7 mg/dL (8.4-10.2) 02/10/19 12:10 Total Bilirubin 0.20 mg/dL (0.1-1.2) 02/10/19 12:10 AST 16 units/L (5-40) 02/10/19 12:10 ALT 7 units/L (7-56) 02/10/19 12:10 Alkaline Phosphatase 68 units/L (35-129) 02/10/19 12:10 Total Protein 7.0 g/dL (6.3-8.2) 02/10/19 12:10 Albumin 4.5 g/dL (3.9-5) 02/10/19 12:10 Albumin/Globulin Ratio 1.8 % 02/10/19 12:10 Triglycerides 75 mg/dL (2-149) 02/10/19 12:10 Cholesterol 244 mg/dL (50-199) H 02/10/19 12:10 LDL Cholesterol Direct 158 mg/dL (50-130) H 02/10/19 12:10 HDL Cholesterol 89 mg/dL (40-59) H 02/10/19 12:10 Cholesterol/HDL Ratio 2.74 % 02/10/19 12:10 Urine Color Yellow (Yellow) 02/10/19 Unknown Urine Turbidity Clear (Clear) 02/10/19 Unknown Urine pH 6.0 (5.0-7.0) 02/10/19 Unknown Ur Specific [place] 1.016 (1.003-1.030) 02/10/19 Unknown Urine Protein <15 mg/dl mg/dL (Negative) 02/10/19 Unknown Urine Glucose (UA) Neg mg/dL (Negative) 02/10/19 Unknown Urine Ketones Neg mg/dL (Negative) 02/10/19 Unknown Urine Blood Neg (Negative) 02/10/19 Unknown Urine Nitrite Neg (Negative) 02/10/19 Unknown Urine Bilirubin Neg (Negative) 02/10/19 Unknown Urine Urobilinogen < 2.0 mg/dL (<2.0) 02/10/19 Unknown Ur Leukocyte Esterase Mod (Negative) 02/10/19 Unknown Urine WBC (Auto) 17.0 /HPF (0.0-6.0) H 02/10/19 Unknown Urine RBC (Auto) 2.0 /HPF (0.0-6.0) 02/10/19 Unknown U Epithel Cells (Auto) < 1.0 /HPF (0-13.0) 02/10/19 Unknown Urine Bacteria (Auto) 1+ /HPF (Negative) 02/10/19 Unknown Last Vital Signs Temp 97.3 F L 02/15/19 19:33 Pulse 90 02/15/19 19:33 Resp 17 02/15/19 19:33 BP 136/69 02/15/19 19:33 Pulse Ox 97 02/15/19 19:33
[2019-02-16] MEDS: LEVOTHYROXINE 50 MCG TAB PO SCH (07:37)
[2019-02-16] MEDS: SERTRALINE 50 MG TAB PO SCH (09:38)
[2019-02-16] MEDS: clonazePAM 0.5 MG TAB PO SCH (09:39)
[2019-02-16] MEDS: PANTOPRAZOLE 20 MG TAB PO SCH (09:39)
[2019-02-16] MEDS: NICOTINE 21 MG/24 HR PATCH TD SCH (09:39)
--- NOTE | 2019-02-16 09:45 | Discharge Summary ---
Providers - Providers Date of Admission: 02/10/19 10:40 Date of discharge: 02/16/19 Attending physician: MON[place] GARCIA MD 02/10/19 09:55 Consult to Physician [CONS] Routine Comment: Consulting Provider: REBECCA DUNBAR Physician Instructions: Reason For Exam: New [place] patient Primary care physician: BURRER MARKER AXLE Hospitalization Reason for admission: threatening to kill herself, threatening to kill her ex- Condition: Stable Hospital course: The patient was provided inpatient psychiatric treatment with safe and supportive environment, group therapy, individual counseling, psychiatric medication, medication adjustment, adverse effect monitor, medical evaluation, medical treatment, social service assessment, family/social support meeting, placement assessment and psycho-education. The patients mood, anxiety, thoughts, stress management skill, cognition, impulse/anger control, motivation, understanding of disease, compliance to treatment and appreciation on family/social support are improved and stabilized. At the time of discharge, the patient had no suicidal ideas, no homicidal ideas, no aggressive thoughts, no endangering behavior and no debilitating adverse effects. Disposition: DC-01 TO HOME OR SELFCARE Allergies/Adverse Reactions: Allergies No Known Allergies Allergy (Unverified 02/10/19 04:23) Vital Signs: Last Vital Signs Temp 97.3 F L 02/15/19 19:33 Pulse 90 02/15/19 19:33 Resp 17 02/15/19 19:33 BP 136/69 02/15/19 19:33 Pulse Ox 97 02/15/19 19:33 Last Lab: Laboratory Last Values WBC 5.8 K/mm3 (4.5-11.0) 02/10/19 12:10 RBC 4.44 M/mm3 (3.65-5.03) 02/10/19 12:10 Hgb 13.5 gm/dl (10.1-14.3) 02/10/19 12:10 Hct 40.0 % (30.3-42.9) 02/10/19 12:10 MCV 90 fl (79-97) 02/10/19 12:10 MCH 30 pg (28-32) 02/10/19 12:10 MCHC 34 % (30-34) 02/10/19 12:10 RDW 15.6 % (13.2-15.2) H 02/10/19 12:10 Plt Count 333 K/mm3 (140-440) 02/10/19 12:10 Lymph % (Auto) 11.6 % (13.4-35.0) L 02/10/19 12:10 Mobile % (Auto) 11.1 % (0.0-7.3) H 02/10/19 12:10 Eos % (Auto) 2.3 % (0.0-4.3) 02/10/19 12:10 Baso % (Auto) 0.9 % (0.0-1.8) 02/10/19 12:10 Lymph # 0.7 K/mm3 (1.2-5.4) L 02/10/19 12:10 Mobile # 0.6 K/mm3 (0.0-0.8) 02/10/19 12:10 Eos # 0.1 K/mm3 (0.0-0.4) 02/10/19 12:10 Baso # 0.1 K/mm3 (0.0-0.1) 02/10/19 12:10 Seg Neutrophils % 74.1 % (40.0-70.0) H 02/10/19 12:10 Seg Neutrophils # 4.3 K/mm3 (1.8-7.7) 02/10/19 12:10 Sodium 139 mmol/L (137-145) 02/10/19 12:10 Potassium 5.1 mmol/L (3.6-5.0) H D 02/10/19 12:10 Chloride 99.1 mmol/L (98-107) 02/10/19 12:10 Carbon Dioxide 28 mmol/L (22-30) 02/10/19 12:10 Anion Gap 17 mmol/L 02/10/19 12:10 BUN 15 mg/dL (7-17) 02/10/19 12:10 Creatinine 0.7 mg/dL (0.7-1.2) 02/10/19 12:10 Estimated GFR > 60 ml/min 02/10/19 12:10 BUN/Creatinine Ratio 21 % 02/10/19 12:10 Glucose 100 mg/dL (65-100) 02/10/19 12:10 POC Glucose 91 (70-105) 02/10/19 12:34 Hemoglobin A1c 6.5 % (4-6) H 02/10/19 12:10 Calcium 9.7 mg/dL (8.4-10.2) 02/10/19 12:10 Total Bilirubin 0.20 mg/dL (0.1-1.2) 02/10/19 12:10 AST 16 units/L (5-40) 02/10/19 12:10 ALT 7 units/L (7-56) 02/10/19 12:10 Alkaline Phosphatase 68 units/L (35-129) 02/10/19 12:10 Total Protein 7.0 g/dL (6.3-8.2) 02/10/19 12:10 Albumin 4.5 g/dL (3.9-5) 02/10/19 12:10 Albumin/Globulin Ratio 1.8 % 02/10/19 12:10 Triglycerides 75 mg/dL (2-149) 02/10/19 12:10 Cholesterol 244 mg/dL (50-199) H 02/10/19 12:10 LDL Cholesterol Direct 158 mg/dL (50-130) H 02/10/19 12:10 HDL Cholesterol 89 mg/dL (40-59) H 02/10/19 12:10 Cholesterol/HDL Ratio 2.74 % 02/10/19 12:10 Urine Color Yellow (Yellow) 02/10/19 Unknown Urine Turbidity Clear (Clear) 02/10/19 Unknown Urine pH 6.0 (5.0-7.0) 02/10/19 Unknown Ur Specific [place] 1.016 (1.003-1.030) 02/10/19 Unknown Urine Protein <15 mg/dl mg/dL (Negative) 02/10/19 Unknown Urine Glucose (UA) Neg mg/dL (Negative) 02/10/19 Unknown Urine Ketones Neg mg/dL (Negative) 02/10/19 Unknown Urine Blood Neg (Negative) 02/10/19 Unknown Urine Nitrite Neg (Negative) 02/10/19 Unknown Urine Bilirubin Neg (Negative) 02/10/19 Unknown Urine Urobilinogen < 2.0 mg/dL (<2.0) 02/10/19 Unknown Ur Leukocyte Esterase Mod (Negative) 02/10/19 Unknown Urine WBC (Auto) 17.0 /HPF (0.0-6.0) H 02/10/19 Unknown Urine RBC (Auto) 2.0 /HPF (0.0-6.0) 02/10/19 Unknown U Epithel Cells (Auto) < 1.0 /HPF (0-13.0) 02/10/19 Unknown Urine Bacteria (Auto) 1+ /HPF (Negative) 02/10/19 Unknown - Discharge Diagnoses (1) Bipolar disorder, unspecified Status: Acute Core Measure Documentation - Palliative Care Palliative Care/ Comfort Measures: Not Applicable - Core Measures Any of the following diagnoses?: none Exam - Constitutional Vitals: Temp Pulse Resp BP Pulse Ox 97.3 F L 90 17 136/69 97 02/15/19 19:33 02/15/19 19:33 02/15/19 19:33 02/15/19 19:33 02/15/19 19:33 General appearance: Present: no acute distress - EENT Eyes: Present: PERRL, EOM intact ENT: hearing intact, clear oral mucosa - Neck Neck: Present: supple, normal ROM - Respiratory Respiratory effort: normal Plan Activity: advance as tolerated Weight Bearing Status: Weight Bear as Tolerated Care Plan Goals: Maintain good and stable mental health Plan of Treatment: Take medications as prescribed and attend outpatient appointments regularly Health Concerns: None Assessment: Bipolar disorder unspecified Follow up with: PRIMARY CARE, [Primary Care Provider] - 7 Days Prescriptions: traZODone [Desyrel] 100 mg PO QHS #30 Nicotine [Habitrol] 21 mg TD QDAY #30 patch hydrOXYzine PAMOATE [Vistaril] 50 mg PO Q6H PRN #30 capsule PRN Reason: Anxiety Sertraline [Zoloft] 50 mg PO QDAY #30
== END 2019-02-16 11:59 | disposition home or self-care (01) | DRG 885 ==
LOC: 3A 09:34 → UNDOADMIN 09:34 → 5A 10:40
PROVIDERS: ADMIT Psychiatry & Neurology Psychiatry; ATTEND Psychiatry & Neurology Psychiatry
DX: F31.9 Bipolar disorder, unspecified (principal); K21.9 Gastro-esophageal reflux disease without esophagitis; F17.200 Nicotine dependence, unspecified, uncomplicated; E03.9 Hypothyroidism, unspecified
CPT/HCPCS: 36415; 80048; 80053; 80061; 80307; 80320; 81001; 82962; 83036; 85025; 87086; G0378; G0480; J2060; J3486; Q0177